=== PATIENT | female | born 1990 | race Caucasian/White ===

== ENCOUNTER 2017-11-11 10:06 | Emergency (ER) | payer OTHER ==
[~2017-11-11] VITALS: Ht 157.5 cm; Wt 104.3 kg
== END 2017-11-11 13:55 | disposition home or self-care (01) ==
LOC: ER 10:06
DX: R51 Headache (principal)

== ENCOUNTER → 2018-03-27 | Emergency (ER) | payer OTHER ==
[~2018-03-27] VITALS: Ht 152.4 cm; Wt 60.8 kg
== END | disposition home or self-care (01) ==
LOC: ER 16:53
DX: N83.292 Other ovarian cyst, left side (principal); N39.0 Urinary tract infection, site not specified

== ENCOUNTER 2018-08-13 15:35 | Emergency (ER) | payer OTHER ==
[~2018-08-13] VITALS: Ht 154.9 cm; Wt 108.0 kg
== END 2018-08-13 17:19 | disposition home or self-care (01) ==
LOC: ER 15:35
DX: G56.01 Carpal tunnel syndrome, right upper limb (principal)